=== PATIENT | female | born 1990 | race Caucasian/White ===

== ENCOUNTER 2017-05-24 17:00 | Emergency (ER) | payer MEDICAID, OTHER ==
[~2017-05-24] VITALS: Ht 162.6 cm; Wt 58.1 kg
[2017-05-24] MEDS ORDERED: NS 100 ML (IVPB) BAG IV ONE (18:00)
[2017-05-24] MEDS ORDERED: IOHEXOL 350 MG/ML 100 ML (OMNIPAQUE 350) VIAL IV ONE (18:00)
[2017-05-24 18:23] LABS: BASOPHILS % (AUTO) 0 % (0-10); EOSINOPHILS % (AUTO) 0 % (0-10); HEMATOCRIT 37 % (35-52); HEMOGLOBIN 11.9 G/DL (11.5-16.0); LYMPHOCYTES # (AUTO) 1.1 X 10^3 (1.0-4.0); LYMPHOCYTES % (AUTO) 12 % (12-44); MEAN CORPUSCULAR HEMOGLOBIN 26 PG (25-34); MEAN CORPUSCULAR HGB CONC 32 G/DL (32-36); MEAN CORPUSCULAR VOLUME 79 FL (80-99); MONOCYTES % (AUTO) 11 % (0-12); NEUTROPHILS # (AUTO) 6.7 X 10^3 (1.8-7.8); NEUTROPHILS % (AUTO) 76 % (42-75); PLATELET COUNT 185 10^3/uL (130-400); RED BLOOD COUNT 4.64 10^6/uL (4.35-5.85); RED CELL DISTRIBUTION WIDTH 14.9 % (10.0-14.5); WHITE BLOOD COUNT 8.8 10^3/uL (4.3-11.0)
--- NOTE | 2017-05-24 18:27 | ED EENT ---
History of Present Illness General Chief Complaint: Facial Problems Stated Complaint: SINUS INFECTION, FACIAL SWELLING, PAIN Nursing Triage Note: PATIENT STATES THAT TUESDAY MORNING SHE WOKE UP TO SWELLING ON THE LFET SIDE OF HER FACE AND SLEPT MOST OF THE DAY. TUESDAY SHE WENT OT [facility] AND WAS PRESCRIBED AUGEMTIN AND TRAMADOL FOR SINUSITIS. NOTHING HAS HELPED THE PAIN. TODAY HER RIGHT SIDE OF HER FACE IS SWOLLEN ALSO. SHE STATES SHE ALSO HAS A HOLE IN HER TOOTH ON THE LEFT SIDE AND THAT HER GUMS "FEEL WEIRD" OVER BY THE TOOTH. Source: patient Exam Limitations: no limitations History of Present Illness Date Seen by Provider: May 24, 2017 Time Seen by Provider: 18:26 Initial Comments To ER with swelling to the left side of her face. This began Monday 05/22. She was seen at [facility] and was told this was sinusitis she states. She was given Augmentin and Ultram which she is still on but denies any improvement. She awakened today with swelling beneath both eyes and persistent pain just below the nose on the left side of her face. Timing/Duration: abrupt Severity: moderate Location: facial Associated Symptoms: No cough, No fever Allergies and Home Medications Allergies Coded Allergies: No Allergy Information Available (Unverified , 05/24/17) Home Medications Prednisone 20 Mg Tab, 40 MG PO DAILY Prescribed by: FELICITA ARMENDARIZ on 05/24/17 4006 Patient Home Medication List Home Medication List Reviewed: Yes Review of Systems Constitutional: see HPI Eyes: No Symptoms Reported Ears: No Symptoms Reported Mouth: see HPI, pain, swelling Throat: no symptoms reported Respiratory: no symptoms reported Cardiovascular: no symptoms reported Past Ftctyxb-Hecapa-Xdvxaj Hx Patient Social History Alcohol Use: Denies Use Recreational Drug Use: No Smoking Status: Never a Smoker 2nd Hand Smoke Exposure: No Recent Foreign Travel: No Contact w/Someone Who Travel: No Recent Infectious Disease Expo: No Recent Hopitalizations: No Seasonal Allergies Seasonal Allergies: No Past Medical History Surgeries: No Respiratory: No Cardiac: No Neurological: No Genitourinary: No Gastrointestinal: No Musculoskeletal: No Endocrine: No HEENT: No Cancer: No Psychosocial: No Integumentary: No Blood Disorders: No Physical Exam Vital Signs Vital Signs - First Documented 05/24/17 17:32 Temp 98.5 Pulse 100 Resp 18 B/P (MAP) 134/93 (107) Pulse Ox 99 O2 Delivery Room Air General Appearance: WD/WN, no apparent distress Eyes: bilateral eye normal inspection, bilateral eye PERRL, bilateral eye EOMI , bilateral eye other (edema to the lower eyelids bilaterally left greater than right) Ears: bilateral ear auricle normal, bilateral ear canal normal, bilateral ear TM normal Mouth/Throat: other (there is some swelling over tooth #10 and 11 but no fluctuance) Neck: non-tender, full range of motion Respiratory: normal breath sounds, no respiratory distress, no accessory muscle use Gastrointestinal: normal bowel sounds, non tender, soft Neurologic/Psychiatric: alert, normal mood/affect, oriented x 3 Skin: normal color, warm/dry Progress/Results/Core Measures Lab Results Laboratory Tests Test 05/24/17 18:04 05/24/17 18:07 Range/Units Urine Color YELLOW Urine Clarity CLEAR Urine pH 6 5-9 Urine Specific [place] 1.020 1.016-1.022 Urine Protein 2+ H NEGATIVE Urine Glucose (UA) NEGATIVE NEGATIVE Urine Ketones 4+ H NEGATIVE Urine Nitrite NEGATIVE NEGATIVE Urine Bilirubin NEGATIVE NEGATIVE Urine Urobilinogen 4 H NORMAL MG/DL Urine Leukocyte Esterase 1+ H NEGATIVE Urine RBC (Auto) 1+ H NEGATIVE Urine RBC 0-2 /HPF Urine WBC 2-5 /HPF Urine Squamous Epithelial Cells 0-2 /HPF Urine Crystals NONE /LPF Urine Bacteria FEW H /HPF Urine Casts NONE /LPF Urine Mucus MODERATE H /LPF Urine Culture Indicated NO White Blood Count 8.8 4.3-11.0 10^3/uL Red Blood Count 4.64 4.35-5.85 10^6/uL Hemoglobin 11.9 11.5-16.0 G/DL Hematocrit 37 35-52 % Mean Corpuscular Volume 79 L 80-99 FL Mean Corpuscular Hemoglobin 26 25-34 PG Mean Corpuscular Hemoglobin Concent 32 32-36 G/DL Red Cell Distribution Width 14.9 H 10.0-14.5 % Platelet Count 185 130-400 10^3/uL Mean Platelet Volume 12.0 H 7.4-10.4 FL Neutrophils (%) (Auto) 76 H 42-75 % Lymphocytes (%) (Auto) 12 12-44 % Monocytes (%) (Auto) 11 0-12 % Eosinophils (%) (Auto) 0 0-10 % Basophils (%) (Auto) 0 0-10 % Neutrophils # (Auto) 6.7 1.8-7.8 X 10^3 Lymphocytes # (Auto) 1.1 1.0-4.0 X 10^3 Monocytes # (Auto) 1.0 0.0-1.0 X 10^3 Eosinophils # (Auto) 0.0 0.0-0.3 10^3/uL Basophils # (Auto) 0.0 0.0-0.1 10^3/uL Sodium Level 135 135-145 MMOL/L Potassium Level 3.4 L 3.6-5.0 MMOL/L Chloride Level 101 98-107 MMOL/L Carbon Dioxide Level 26 21-32 MMOL/L Anion Gap 8 5-14 MMOL/L Blood Urea Nitrogen 6 L 7-18 MG/DL Creatinine 0.73 0.60-1.30 MG/DL Estimat Glomerular Filtration Rate > 60 BUN/Creatinine Ratio 8 Glucose Level 104 70-105 MG/DL Calcium Level 9.7 8.5-10.1 MG/DL Total Bilirubin 0.8 0.1-1.0 MG/DL Aspartate Amino Transf (AST/SGOT) 15 5-34 U/L Alanine Aminotransferase (ALT/SGPT) 15 0-55 U/L Alkaline Phosphatase 78 40-136 U/L Total Protein 8.5 H 6.4-8.2 GM/DL Albumin 4.4 3.2-4.5 GM/DL Serum Test, Qualitative NEGATIVE NEGATIVE My Orders Orders - FELICITA ARMENDARIZ APRN Cbc With Automated Diff (05/24/17 17:49) Comprehensive Metabolic Panel (05/24/17 17:49) Ua Culture If Indicated (05/24/17 17:49) Hcg,Qualitative Serum (05/24/17 17:49) Ct Maxillofacial W (05/24/17 17:49) Iohexol Injection (Omnipaque 350 Mg/Ml 1 (05/24/17 18:00) Ns (Ivpb) (Sodium Chloride 0.9% Ivpb Bag (05/24/17 18:00) Ns Iv 1000 Ml (Sodium Chloride 0.9%) (05/24/17 18:45) Ceftriaxone Injection (Rocephin Injectio (05/24/17 18:45) Dexamethasone Injection (Decadron Inject (05/24/17 18:45) Medications Given in ED Current Medications Medications Dose Ordered Sig/Maegan Route Start Time Stop Time Status Last Admin Dose Admin Ceftriaxone Sodium 1000 mg/ Sodium Chloride 100 ml @ 200 mls/hr ONCE ONCE IV 05/24/17 18:45 05/24/17 19:14 DC 05/24/17 19:02 200 MLS/HR Dexamethasone Sodium Phosphate 10 mg ONCE ONCE IV 05/24/17 18:45 05/24/17 18:46 DC 05/24/17 19:02 10 MG Iohexol 100 ml ONCE ONCE IV 05/24/17 18:00 05/24/17 18:01 DC 05/24/17 18:33 80 ML Sodium Chloride 100 ml ONCE ONCE IV 05/24/17 18:00 05/24/17 18:01 DC 05/24/17 18:33 100 ML Vital Signs/I&O 05/24/17 05/24/17 17:32 20:33 Temp 98.5 98.5 Pulse 100 100 Resp 18 18 B/P (MAP) 134/93 (107) 134/93 (107) Pulse Ox 99 99 O2 Delivery Room Air Blood Pressure Mean: 107 Departure Impression Primary Impression: Facial swelling Additional Impression: Left maxillary sinusitis Disposition: HOME, SELF-CARE Condition: Stable Departure-Patient Inst. Decision time for Depature: 18:51 Referrals: NICOLÁS DONALD (PCP/Family) Primary Care Physician Patient Instructions: Sinusitis in Adults Add. Discharge Instructions: 1. Steroids as directed beginning tomorrow 2. Continue the Augmentin antibiotics 3. Follow-up with your doctor this week for recheck 4. Return to ER for any fevers or other concerns. 5. Use an over the counter nasal steroid spray such as nasocort or flonase. All discharge instructions reviewed with patient and/or family. Voiced understanding. Scripts Prednisone (Prednisone) 20 Mg Tab 40 MG PO DAILY, #6 TAB Prov: FELICITA ARMENDARIZ APRN 05/24/17 Work/School Note: Work Release Form Date Seen in the Emergency Department: May 24, 2017 Return to Work: May 27, 2017 FELICITA ARMENDARIZ APRN May 24, 2017 18:27
[2017-05-24 18:29] LABS: BILIRUBIN,URINE NEGATIVE (NEGATIVE); CLARITY,URINE CLEAR; COLOR,URINE YELLOW; GLUCOSE, URINE (UA) NEGATIVE (NEGATIVE); KETONES,URINE 4+ (NEGATIVE); LEUKOCYTE ESTERASE ,URINE 1+ (NEGATIVE); NITRITE,URINE NEGATIVE (NEGATIVE); PH,URINE 6 (5-9); PROTEIN,URINE 2+ (NEGATIVE); UROBILINOGEN,URINE 4 MG/DL (NORMAL)
[2017-05-24 18:39] LABS: BACTERIA,URINE FEW /HPF; RBC,URINE 0-2 /HPF; SQUAMOUS EPITHELIAL CELL,UR 0-2 /HPF
[2017-05-24 18:42] LABS: ALANINE AMINOTRANSFERASE 15 U/L (0-55); ALBUMIN 4.4 GM/DL (3.2-4.5); ALKALINE PHOSPHATASE 78 U/L (40-136); BILIRUBIN,TOTAL 0.8 MG/DL (0.1-1.0); BUN/CREATININE RATIO 8; CALCIUM 9.7 MG/DL (8.5-10.1); CARBON DIOXIDE 26 MMOL/L (21-32); CHLORIDE 101 MMOL/L (98-107); CREATININE SERUM 0.73 MG/DL (0.60-1.30); GFR ESTIMATED > 60; GLUCOSE 104 MG/DL (70-105); POTASSIUM 3.4 MMOL/L (3.6-5.0); SODIUM 135 MMOL/L (135-145); TOTAL PROTEIN 8.5 GM/DL (6.4-8.2)
[2017-05-24] MEDS ORDERED: DEXAMETHASONE 10 MG/ML (DECADRON) 1 ML VIAL IV ONE (18:45)
[2017-05-24] MEDS ORDERED: NS IV 1000 ML 1,000 ML IV SCH (18:45)
[2017-05-24] MEDS ORDERED: cefTRIAXone INJECTION 1,000 MG in NS (IVPB) 100 ML IV ONE (18:45)
--- NOTE | 2017-05-24 18:51 | Diagnostic Imaging Report ---
PROCEDURE: CT maxillofacial with contrast. TECHNIQUE: After intravenous administration of contrast, axial images were obtained through the face and reformatted into coronal and sagittal planes. INDICATION: Left facial pain and swelling. FINDINGS: There is membrane thickening in the left maxillary sinus. Right maxillary sinus is clear. Nasal passages are clear. The left ostiomeatal unit is compromised by membrane thickening. The sphenoid sinus, ethmoid air cells, and frontal sinus appear clear. Globes and orbits are unremarkable. IMPRESSION: Left maxillary sinusitis. Dictated by: Dictated on workstation # [id number]
[2017-05-24] MEDS ORDERED: PRD20T PO (18:57)
[2017-05-24 20:33] VITALS: BP 134/93
== END 2017-05-24 20:31 | disposition home or self-care (01) ==
LOC: EDUNIT# 17:00 → ER 17:02
DX: R22.0 Localized swelling, mass and lump, head (principal); J32.0 Chronic maxillary sinusitis; Z79.52 Long term (current) use of systemic steroids
CPT/HCPCS: 36415; 70487; 80053; 81000; 84703; 85025; 96361; 96374; 96375